=== PATIENT | male | born 1950 | race Caucasian/White ===

== ENCOUNTER → 2016-05-04 | Outpatient (CLI) | payer MEDICARE, OTHER ==
--- NOTE | 2016-05-05 07:39 | US ---
EXAMINATION TYPE: US kidneys/renal and bladder DATE OF EXAM: 05/04/2016 3:56 PM COMPARISON: NONE CLINICAL HISTORY: N28.9 Left Kidney Pain. EXAM MEASUREMENTS: Right Kidney: 10.9 x 5.2 x 5.0 cm Left Kidney: 10.8 x 5.6 x 5.7 cm Findings: Right Kidney: No hydronephrosis or masses seen Left Kidney: No hydronephrosis or masses seen Bladder: wnl Bilateral Jets seen: Yes There is no evidence for hydronephrosis at this point in time. No nephrolithiasis is seen. No matthew s are identified. The urinary bladder is anechoic. Bilateral ureteral jets are seen. IMPRESSION: 1. No acute process.
== END | disposition home or self-care (01) ==
LOC: RADUSWWP 15:25
PROVIDERS: ATTEND Family Medicine
DX: N28.9 Disorder of kidney and ureter, unspecified (principal)
CPT/HCPCS: 76770

== ENCOUNTER 2019-01-28 11:40 | Observation (INO) | payer MEDICARE ==
[2019-01-28] MEDS ORDERED: HYDROmorphone 0.5 MG/0.5 ML SYRINGE IVP STA (12:17)
[2019-01-28] MEDS ORDERED: KETOROLAC 30 MG/ML 1 ML VIAL IVP STA (12:17)
[2019-01-28] MEDS ORDERED: SODIUM CHLORIDE 0.9% 1,000 ML IV STA (12:17)
--- NOTE | 2019-01-28 12:34 | ED ---
Abdominal Pain HPI - General Source: patient, RN notes reviewed Mode of arrival: ambulatory Limitations: no limitations <Evearrdo Rivera - Last Filed: 01/28/19 15:25> <Florentino Kee - Last Filed: 01/28/19 15:57> - General Chief Complaint: Abdominal Pain Stated Complaint: abdominal pain Time Seen by Provider: 01/28/19 11:57 - History of Present Illness Initial Comments: 68-year-old male presents emergency Department chief complaint of abdominal pain. Patient states started a few days ago to progressive worsening. He does admit that the pain is in his mid abdomen. Patient states she's had some nausea and vomiting which he states it was more bilious denies any hematemesis or coffee-ground emesis. Patient reports no fever at home though current temp 100.9. Patient states he takes Wellbutrin no other medications denies any prior abdominal surgeries. Patient denies chest pain, shortness breath, cough or URI symptoms no dysuria no hematuria denies any diarrhea constipation denies melena or hematochezia. (Everardo Rivera) - Related Data Previous Rx's Medication Instructions Recorded Hydrocortisone Cream 1 applic TOPICAL BID #15 cream..g. 09/15/15 [Hydrocortisone 2.5% Cream] methylPREDNISolone [Medrol] 4 mg PO DIRECTED #1 tab.ds.pk 09/15/15 Allergies Allergy/AdvReac Type Severity Reaction Status Date / Time meperidine HCl [From Demerol] Allergy Itching Verified 01/28/19 11:52 Review of Systems ROS Other: All systems not noted in ROS Statement are negative. <Everardo Rivera - Last Filed: 01/28/19 15:25> ROS Other: All systems not noted in ROS Statement are negative. <Florentino Kee - Last Filed: 01/28/19 15:57> ROS Statement: Those systems with pertinent positive or pertinent negative responses have been documented in the HPI. Past Medical History Past Medical History: Heart Failure, CVA/TIA, Hypertension, Liver Disease, Memory Impairment Additional Past Medical History / Comment(s): Think dx was CHF but not sure. Stopped BP medication because his BP was good. hx hepatitis c, recent 0 titres. dx alzheimers beginning stage History of Any Multi-Drug Resistant Organisms: None Reported Past Surgical History: Orthopedic Surgery Additional Past Surgical History / Comment(s): ACL replacement rt knee. 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 Past Anesthesia/Blood Transfusion Reactions: No Reported Reaction Past Psychological History: No Psychological Hx Reported Smoking Status: Current every day smoker Past Alcohol Use History: None Reported Past Drug Use History: None Reported <Everardo Rivera Noemí - Last Filed: 01/28/19 15:25> General Exam Limitations: no limitations General appearance: alert, in no apparent distress Head exam: Present: atraumatic, normocephalic, normal inspection Eye exam: Present: normal appearance, PERRL, EOMI. Absent: scleral icterus, conjunctival injection, periorbital swelling ENT exam: Present: normal exam, normal oropharynx, mucous membranes moist Neck exam: Present: normal inspection, full ROM. Absent: tenderness, meningismus, lymphadenopathy Respiratory exam: Present: normal lung sounds bilaterally. Absent: respiratory distress, wheezes, rales, rhonchi, stridor Cardiovascular Exam: Present: normal rhythm, tachycardia, normal heart sounds. Absent: systolic murmur, diastolic murmur, rubs, gallop, clicks GI/Abdominal exam: Present: soft, tenderness (Moderate mid abdominal tenderness), normal bowel sounds. Absent: distended, guarding, rebound, rigid Back exam: Absent: CVA tenderness (R), CVA tenderness (L) Neurological exam: Present: alert Skin exam: Present: warm, dry, intact, normal color. Absent: rash <Everardo Rivera - Last Filed: 01/28/19 15:25> Course <Florentino Kee - Last Filed: 01/28/19 15:57> Vital Signs 01/28/19 01/28/19 11:49 15:36 Temperature 100.9 F H 97.7 F Pulse Rate 102 H 84 Respiratory 18 18 Rate Blood Pressure 137/86 124/80 O2 Sat by Pulse 97 96 Oximetry - Reevaluation(s) Reevaluation #1: 01/28/19 15:56 PA supervision: I proceeded [id number] evaluation the patient patient does present with pain and workup does consist of imaging which does show evidence of dilated gallbladder cholecystitis. Case is discussed with the patient family as well as Dr. Puente. It will be admitted I do agree with the assessment and plan. (Florentino Kee) Medical Decision Making - Lab Data Result diagrams: 01/28/19 12:34 01/28/19 12:34 <Everardo Rivera - Last Filed: 01/28/19 15:25> - Lab Data Result diagrams: 01/28/19 12:34 01/28/19 12:34 <Florentino Kee - Last Filed: 01/28/19 15:57> - Medical Decision Making Labs, CT were drawn patient has leukocytosis CT shows evidence of acute cholecystitis. Patient was started on Zosyn, given IV fluid hydration case discussed with Dr. Puente who admit the patient. (Everardo Rivera) - Lab Data Lab Results 01/28/19 01/28/19 01/28/19 Range/Units 12:34 12:34 12:34 WBC 23.3 H (3.8-10.6) k/uL RBC 4.92 (4.30-5.90) m/uL Hgb 16.2 (13.0-17.5) gm/dL Hct 47.2 (39.0-53.0) % MCV 95.9 (80.0-100.0) fL MCH 33.0 (25.0-35.0) pg MCHC 34.4 (31.0-37.0) g/dL RDW 12.9 (11.5-15.5) % Plt Count 178 (150-450) k/uL Neutrophils % 91 % Lymphocytes % 2 % Monocytes % 5 % Eosinophils % 0 % Basophils % 1 % Neutrophils # 21.1 H (1.3-7.7) k/uL Lymphocytes # 0.6 L (1.0-4.8) k/uL Monocytes # 1.1 H (0-1.0) k/uL Eosinophils # 0.1 (0-0.7) k/uL Basophils # 0.1 (0-0.2) k/uL PT (9.0-12.0) sec INR (<1.2) APTT (22.0-30.0) sec Sodium 139 (137-145) mmol/L Potassium 4.0 (3.5-5.1) mmol/L Chloride 104 (98-107) mmol/L Carbon Dioxide 24 (22-30) mmol/L Anion Gap 11 mmol/L BUN 25 H (9-20) mg/dL Creatinine 0.98 (0.66-1.25) mg/dL Est GFR (CKD-EPI)AfAm >90 (>60 ml/min/1.73 sqM) Est GFR (CKD-EPI)NonAf 80 (>60 ml/min/1.73 sqM) Glucose 123 H (74-99) mg/dL Plasma Lactic Acid Haseeb 1.6 (0.7-2.0) mmol/L Calcium 9.0 (8.4-10.2) mg/dL Total Bilirubin 1.4 H (0.2-1.3) mg/dL AST 25 (17-59) U/L ALT 22 (21-72) U/L Alkaline Phosphatase 72 (38-126) U/L Total Protein 7.1 (6.3-8.2) g/dL Albumin 4.0 (3.5-5.0) g/dL Amylase 57 (30-110) U/L Lipase <10 L (23-300) U/L Urine Color Urine Appearance (Clear) Urine pH (5.0-8.0) Urine Protein (Negative) Urine Glucose (UA) (Negative) Urine Ketones (Negative) Urine Blood (Negative) Urine Nitrite (Negative) Urine Bilirubin (Negative) Urine Urobilinogen (<2.0) mg/dL Ur Leukocyte Esterase (Negative) Urine WBC (0-5) /hpf Ur Squamous Epith Cells (0-4) /hpf Urine Mucus (None) /hpf 01/28/19 01/28/19 Range/Units 12:34 15:30 WBC (3.8-10.6) k/uL RBC (4.30-5.90) m/uL Hgb (13.0-17.5) gm/dL Hct (39.0-53.0) % MCV (80.0-100.0) fL MCH (25.0-35.0) pg MCHC (31.0-37.0) g/dL RDW (11.5-15.5) % Plt Count (150-450) k/uL Neutrophils % % Lymphocytes % % Monocytes % % Eosinophils % % Basophils % % Neutrophils # (1.3-7.7) k/uL Lymphocytes # (1.0-4.8) k/uL Monocytes # (0-1.0) k/uL Eosinophils # (0-0.7) k/uL Basophils # (0-0.2) k/uL PT 9.3 (9.0-12.0) sec INR 0.8 (<1.2) APTT 26.2 (22.0-30.0) sec Sodium (137-145) mmol/L Potassium (3.5-5.1) mmol/L Chloride (98-107) mmol/L Carbon Dioxide (22-30) mmol/L Anion Gap mmol/L BUN (9-20) mg/dL Creatinine (0.66-1.25) mg/dL Est GFR (CKD-EPI)AfAm (>60 ml/min/1.73 sqM) Est GFR (CKD-EPI)NonAf (>60 ml/min/1.73 sqM) Glucose (74-99) mg/dL Plasma Lactic Acid Haseeb (0.7-2.0) mmol/L Calcium (8.4-10.2) mg/dL Total Bilirubin (0.2-1.3) mg/dL AST (17-59) U/L ALT (21-72) U/L Alkaline Phosphatase (38-126) U/L Total Protein (6.3-8.2) g/dL Albumin (3.5-5.0) g/dL Amylase (30-110) U/L Lipase (23-300) U/L Urine Color Yellow Urine Appearance Clear (Clear) Urine pH 6.5 (5.0-8.0) Urine Protein 1+ H (Negative) Urine Glucose (UA) Negative (Negative) Urine Ketones 1+ H (Negative) Urine Blood Negative (Negative) Urine Nitrite Negative (Negative) Urine Bilirubin Negative (Negative) Urine Urobilinogen 6.0 (<2.0) mg/dL Ur Leukocyte Esterase Negative (Negative) Urine WBC 2 (0-5) /hpf Ur Squamous Epith Cells <1 (0-4) /hpf Urine Mucus Occasional H (None) /hpf Disposition <Everardo Rivera - Last Filed: 01/28/19 15:25> <Florentino Kee - Last Filed: 01/28/19 15:57> Clinical Impression: Acute cholecystitis Disposition: ADMITTED IP TO THIS [facility] Condition: Fair Referrals: None,Stated [Primary Care Provider] - 1-2 days
[2019-01-28 13:00] LABS: ALT 22 U/L (21-72); AST 25 U/L (17-59); African American GFR (CKD) >90 (>60 ml/min/1.73 sqM); Alkaline Phosphatase 72 U/L (38-126); Amylase 57 U/L (30-110); Anion Gap 11 mmol/L; Blood Urea Nitrogen 25 mg/dL (9-20); Carbon Dioxide 24 mmol/L (22-30); Chloride 104 mmol/L (98-107); Glucose 123 mg/dL (74-99); Non-African American GFR(CKD) 80 (>60 ml/min/1.73 sqM); Sodium 139 mmol/L (137-145); Total Bilirubin 1.4 mg/dL (0.2-1.3); Total Protein 7.1 g/dL (6.3-8.2)
[2019-01-28 13:01] LABS: INR 0.8 (<1.2); Partial Thromboplastin Time 26.2 sec (22.0-30.0); Prothrombin Time 9.3 sec (9.0-12.0)
[2019-01-28 13:18] LABS: Basophils # (A) 0.1 k/uL (0-0.2); Basophils % (A) 1 %; Eosinophils # (A) 0.1 k/uL (0-0.7); Eosinophils % (A) 0 %; HCT 47.2 % (39.0-53.0); HGB 16.2 gm/dL (13.0-17.5); Lymphocytes # (A) 0.6 k/uL (1.0-4.8); Lymphocytes % (A) 2 %; MCHC 34.4 g/dL (31.0-37.0); MCV 95.9 fL (80.0-100.0); Monocytes # (A) 1.1 k/uL (0-1.0); Monocytes % (A) 5 %; Neutrophils # (A) 21.1 k/uL (1.3-7.7); Neutrophils % (A) 91 %; Platelet Count 178 k/uL (150-450); RBC 4.92 m/uL (4.30-5.90); RDW 12.9 % (11.5-15.5); WBC 23.3 k/uL (3.8-10.6)
--- NOTE | 2019-01-28 14:19 | CT ---
EXAMINATION TYPE: CT abdomen pelvis w con DATE OF EXAM: 01/28/2019 COMPARISON: None HISTORY: Abdominal pain, fever CT DLP: 944.7 mGycm Automated exposure control for dose reduction was used. TECHNIQUE: Helical acquisition of images was performed from the lung bases through the pelvis. CONTRAST: Performed without Oral Contrast and with IV Contrast, patient injected with 100 mL of Isovue 300. FINDINGS: There is mild subsegmental atelectasis at the lung bases. Heart size is normal. There is no pleural e ffusion. Liver shows no focal defect. Gallbladder is mildly dilated and measures 4.5 cm with mild wal l thickening. The bile ducts are not dilated. Spleen is intact. Stomach appears normal. There is no e vidence of pancreatic mass. There is mild fat stranding around the gallbladder. There is no adrenal mass. Kidneys show satisfactory contrast opacification. There is no hydronephrosi s. Bladder distends smoothly. There is no inguinal hernia. Ureters are not dilated. There is small am ount of free fluid in the pelvis. There is no evidence of a bowel obstruction. There is no sign of free air. Appendix appears normal. A bdominal aorta is atheromatous. There are spondylotic changes in the lumbar spine. There is no compre ssion fracture. Bony pelvis is intact. There is mild wall thickening of the hepatic flexure of the co omid adjacent to gallbladder. IMPRESSION: DILATED GALLBLADDER WITH PERICHOLECYSTIC FLUID AND FAT STRANDING CONSISTENT WITH ACUTE CHOLECYSTITIS. MINIMAL FREE FLUID IN THE pelvis. Mild inflammatory changes of the hepatic flexure of the colon prob ably secondary to gallbladder inflammatory process.
[2019-01-28] MEDS ORDERED: PIPERACILLIN-TAZOBACTAM 3.375 GM in SODIUM CHLORIDE 0.9% 100 ML IVPB STA (15:02)
[2019-01-28] MEDS ORDERED: ONDANSETRON 4 MG/2 ML VIAL IVP PRN (15:26)
[2019-01-28] MEDS ORDERED: HYDROmorphone 0.5 MG/0.5 ML SYRINGE IVP PRN (15:26)
[2019-01-28] MEDS ORDERED: HYDROmorphone 1 MG/ML 1 ML SYRINGE IVP PRN (15:26)
[2019-01-28] MEDS ORDERED: NALOXONE 0.4 MG/ML 1 ML VIAL IV PRN (15:26)
[2019-01-28] MEDS ORDERED: SODIUM CHLORIDE 0.9% 1,000 ML IV SCH (15:30)
[2019-01-28 15:46] LABS: Appearance,Urine Clear (Clear); Bilirubin,Urine Negative (Negative); Blood,Urine Negative (Negative); Color,Urine Yellow; Glucose,Urine (UA) Negative (Negative); Ketones,Urine 1+ (Negative); Leukocyte Esterase,Urine Negative (Negative); Mucus,Urine Occasional /hpf; Nitrite,Urine Negative (Negative); PH, Urine 6.5 (5.0-8.0); Protein,Urine 1+ (Negative); Squamous Epithelial Cell,Urine <1 /hpf (0-4)
[2019-01-28 16:12] LABS: Specific Gravity,Urine >1.050 (1.001-1.035)
[2019-01-28 17:02] VITALS: BP 128/84; PULSE 87; RESP 20; TEMP 99.1
[2019-01-29] MEDS ORDERED: PIPERACILLIN-TAZOBACTAM 3.375 GM in SODIUM CHLORIDE 0.9% 100 ML IVPB SCH ×2
== END 2019-01-28 17:30 | disposition left against medical advice (07) ==
LOC: EC 11:40 → 4MS4W 15:55
PROVIDERS: ADMIT Surgery; ATTEND Surgery
DX: K81.0 Acute cholecystitis (principal); K82.8 Other specified diseases of gallbladder; Z53.29 Procedure and treatment not carried out because of patient's decision for other reasons; I11.0 Hypertensive heart disease with heart failure; I50.9 Heart failure, unspecified; B19.20 Unspecified viral hepatitis C without hepatic coma; G30.9 Alzheimer's disease, unspecified; F02.80 Dementia in other diseases classified elsewhere, unspecified severity, without behavioral disturbance, psychotic disturbance, mood disturbance, and anxiety; F17.200 Nicotine dependence, unspecified, uncomplicated; Z88.5 Allergy status to narcotic agent; Z86.73 Personal history of transient ischemic attack (TIA), and cerebral infarction without residual deficits
CPT/HCPCS: 96361; 96374; 96375; 99285; 36415; 80053; 82150; 83605; 83690; 85025; 85610; 85730; 81001; 87040; 74177; G0378; J2543; J1885; J1170; Q9967

== ENCOUNTER 2019-01-28 17:41 | Inpatient (IN) | payer MEDICARE ==
--- NOTE | 2019-01-28 18:21 | ED ---
Abdominal Pain HPI <Chilango Iraheta - Last Filed: 01/28/19 18:54> - General Source: patient Mode of arrival: ambulatory Limitations: no limitations <Krystina Iqbal - Last Filed: 01/28/19 19:09> - General Chief Complaint: Abdominal Pain Stated Complaint: Left ama from 4th floor has to go though ER now Time Seen by Provider: 01/28/19 17:56 - History of Present Illness Initial Comments: 68-year-old male presents most her for readmission for acute cholecystitis. Patient states he left AMA from the there are a just a few hours prior to presentation to emergency department. Patient states he left to get his phone and his phone numbers to and needed this in order to let his family know where he was at. Patient states he continues have right upper quadrant pain denies any worsening symptoms. Patient states he does not warm or have chills but was told he had a fever when he arrived. Patient states he was told to come to the emergency department for re-admission. Patient states he wants water. Patient has no other complaints. Patient denies any recent shortness of breath, chest pain, back pain, numbness or tingling, dysuria or hematuria, constipation or diarrhea, headaches or visual changes, or any other complaints. (Krystina Iqbal) - Related Data Home Medications Medication Instructions Recorded Confirmed Wellbutrin(Unknown Dose) 1 tab PO DAILY 01/28/19 01/28/19 Allergies Allergy/AdvReac Type Severity Reaction Status Date / Time meperidine HCl [From Demerol] Allergy Itching Verified 01/28/19 18:10 Review of Systems ROS Other: All systems not noted in ROS Statement are negative. <Chilango Iraheta - Last Filed: 01/28/19 18:54> ROS Other: All systems not noted in ROS Statement are negative. <Krystina Iqbal - Last Filed: 01/28/19 19:09> ROS Statement: Those systems with pertinent positive or pertinent negative responses have been documented in the HPI. Past Medical History Past Medical History: Heart Failure, CVA/TIA, Hypertension, Liver Disease, Memory Impairment Additional Past Medical History / Comment(s): Think dx was CHF but not sure. Stopped BP medication because his BP was good. hx hepatitis c, recent 0 titres. dx alzheimers beginning stage History of Any Multi-Drug Resistant Organisms: None Reported Past Surgical History: Orthopedic Surgery Additional Past Surgical History / Comment(s): ACL replacement rt knee. 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 Past Anesthesia/Blood Transfusion Reactions: No Reported Reaction Past Psychological History: No Psychological Hx Reported Smoking Status: Current every day smoker Past Alcohol Use History: None Reported Past Drug Use History: None Reported - Past Family History Brother(s) Family Medical History: Diabetes Mellitus <Krystina Iqbal - Last Filed: 01/28/19 19:09> General Exam Limitations: no limitations <Krystina Iqbal - Last Filed: 01/28/19 19:09> - General Exam Comments Initial Comments: General: The patient is awake and alert, in no distress Eye: Pupils are equal, round and reactive to light, extra-ocular movements are intact. No nystagmus. There is normal conjunctiva bilaterally. No signs of icterus. Cardiovascular: There is a regular rate and rhythm. No murmur, rub or gallop is appreciated. Respiratory: Lungs are clear to auscultation, respirations are non-labored, breath sounds are equal. No wheezes, stridor, rales, or rhonchi. Gastrointestinal: Soft, non-distended, tender to the right upper quadrant positive Chung sign the remainder of the abdomen is without pain as well as without masses or organomegaly noted. There is no rebound or guarding present. No CVA tenderness. Bowel sounds are unremarkable. Musculoskeletal: Normal ROM, no tenderness. Strength 5/5. Sensation intact. Pulses equal bilaterally 2+. Neurological: A&O x 3. CN II-XII intact grossly, There are no obvious motor or sensory deficits. Coordination appears grossly intact. Speech is normal. Skin: Skin is warm and dry and no rashes or lesions are noted. Psychiatric: Cooperative, appropriate mood & affect, normal judgment. (Krystina Iqbal) Course Vital Signs 01/28/19 18:08 Temperature 101.0 F H Pulse Rate 92 Respiratory 18 Rate Blood Pressure 121/78 O2 Sat by Pulse 96 Oximetry Medical Decision Making <Chilango Iraheta - Last Filed: 01/28/19 18:54> <Krystina Iqbal - Last Filed: 01/28/19 19:09> - Medical Decision Making Medical decision making; this 68-year-old male who was admitted earlier today. The diagnosis of acute cholecystitis. The patient apparently signed out AGAINST MEDICAL ADVICE, soon thereafter returned to the emergency room. Earlier today the patient had iv fluids, IV Zosyn, labs showed an elevated white count 23,000. Temperature at that time was 100. Patient's past history includes hep C. Upon arrival to the emergency room several hours after signing out AMA temperature 101 pulse 92 respiratory rate 18 pulse ox 96% room air blood pressure 121/78. The case was discussed with Dr. campbell at the request of Dr. Puente. The patient's exam shows tenderness to the right upper quadrant. Patient states pains ongoing for 2 days with bilious vomiting 2 days ago. The case discussed Dr. campbell, he wants the patient admitted, kept nothing by mouth, continue hydration, continue Zosyn, do a drug screen if not already performed, repeat labs in the morning. Nurses to call him if there is a change in his condition. Dr. Iraheta (Chilango Iraheta) 68-year-old male presented [facility] department who left earlier from for him [facility] AGAINST MEDICAL ADVICE he was diagnosed with acute cholecystitis given 1 dose of Zosyn at ~1700. Patient returns febrile, no new symptoms. I contacted Dr. Puente who refused readmission. Dr. Campbell contacted by Dr. Iraheta, he accepted admission. Dr. Campbell wanted patient NPO, with fluids, q8h zosyn. Patient given epinephrine have given she is febrile and surgical status. Patient admitted and transferred to floor in stable condition. (Krystina Iqbal) Disposition <Chilango Iraheta - Last Filed: 01/28/19 18:54> Is patient prescribed a controlled substance at d/c from ED?: No Time of Disposition: 19:09 Decision to Admit Reason: Admit from EC Decision Date: 01/28/19 Decision Time: 19:09 <Krystina Iqbal - Last Filed: 01/28/19 19:09> Clinical Impression: Acute cholecystitis, Leukocytosis, Fever Disposition: ADMITTED IP TO THIS [facility] Condition: Stable Referrals: None,Stated [Primary Care Provider] - 1-2 days
[2019-01-28] MEDS ORDERED: SODIUM CHLORIDE 0.9% 1,000 ML IV ONE (18:32)
[2019-01-28] MEDS ORDERED: MORPHINE SULFATE 2 MG/ML SYRINGE IVP STA (18:32)
[2019-01-28] MEDS ORDERED: ONDANSETRON 4 MG/2 ML VIAL IVP PRN (18:54)
[2019-01-28] MEDS ORDERED: NALOXONE 0.4 MG/ML 1 ML VIAL IV PRN (18:54)
[2019-01-28] MEDS ORDERED: ACETAMINOPHEN IV (For NPO) 1,000 MG in EMPTY BAG 1 BAG IVPB ONE (18:57)
[2019-01-28] MEDS: SODIUM CHLORIDE 0.9% 1,000 ML IV SCH (19:15)
[2019-01-28 19:27] LABS: Basophils # (A) 0.2 k/uL (0-0.2); Basophils % (A) 1 %; Eosinophils # (A) 0.1 k/uL (0-0.7); Eosinophils % (A) 1 %; HCT 36.8 % (39.0-53.0); Lymphocytes # (A) 0.7 k/uL (1.0-4.8); Lymphocytes % (A) 3 %; MCH 33.9 pg (25.0-35.0); MCHC 35.7 g/dL (31.0-37.0); MCV 94.9 fL (80.0-100.0); Mean Platelet Volume 6.5; Monocytes % (A) 5 %; Neutrophils # (A) 19.2 k/uL (1.3-7.7); Neutrophils % (A) 89 %; Platelet Count 222 k/uL (150-450); RBC 3.87 m/uL (4.30-5.90); RDW 12.8 % (11.5-15.5); WBC 21.5 k/uL (3.8-10.6)
[2019-01-28 19:34] LABS: HGB 13.1 gm/dL (13.0-17.5)
[2019-01-28 19:43] LABS: Albumin 3.7 g/dL (3.5-5.0); Calcium 8.4 mg/dL (8.4-10.2); Total Bilirubin 1.7 mg/dL (0.2-1.3); Total Protein 6.7 g/dL (6.3-8.2)
[2019-01-28 19:48] LABS: Potassium 4.4 mmol/L (3.5-5.1)
[2019-01-28 20:18] LABS: Amphetamine Screen,Urine Not Detected (NotDetected); Barbiturate Screen,Urine Not Detected (NotDetected); Benzodiazepines Screen,Urine Not Detected (NotDetected); Cocaine Screen,Urine Not Detected (NotDetected); Methadone Screen, Urine Not Detected (NotDetected); Opiate Screen,Urine Detected (NotDetected); Oxycodone Screen, Urine Not Detected (NotDetected); Phencyclidine Screen,Urine Not Detected (NotDetected); Tricyclic Antidepressant,Urine Not Detected (NotDetected); Urn Cannabinoid Scrn Not Detected (NotDetected)
[2019-01-28] MEDS: PIPERACILLIN-TAZOBACTAM 3.375 GM in SODIUM CHLORIDE 0.9% 100 ML IVPB SCH (23:45)
[2019-01-29] MEDS ORDERED: LACTATED RINGERS 1,000 ML IV ONE ×2 (06:56→08:33)
[2019-01-29] MEDS ORDERED: HEPARIN SODIUM,PORCINE 5,000 UNIT/ML 1 ML VIAL SQ ONE (07:09)
--- NOTE | 2019-01-29 07:12 | P.GSHP ---
History of Present Illness H&P Date: 01/29/19 Chief Complaint: Right upper quadrant pain This is a 68-year-old male who presents emergency room includes right quadrant pain. His recent CAT scan shows evidence of pericholecystic fluid and cholecystitis. Patient is known to have gallstones. The patient was admitted for acute cholecystitis. Past Medical History Past Medical History: Heart Failure, CVA/TIA, Hypertension, Liver Disease, Memory Impairment Additional Past Medical History / Comment(s): Think dx was CHF but not sure. Stopped BP medication because his BP was good. hx hepatitis c, recent 0 titres. dx alzheimers beginning stage History of Any Multi-Drug Resistant Organisms: None Reported Past Surgical History: Orthopedic Surgery Additional Past Surgical History / Comment(s): ACL replacement rt knee. 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 Past Anesthesia/Blood Transfusion Reactions: No Reported Reaction Past Psychological History: No Psychological Hx Reported Smoking Status: Current some day smoker Past Alcohol Use History: None Reported Past Drug Use History: None Reported - Past Family History Brother(s) Family Medical History: Diabetes Mellitus Medications and Allergies Home Medications Medication Instructions Recorded Confirmed Type Wellbutrin(Unknown Dose) 1 tab PO DAILY 01/28/19 01/28/19 History Allergies Allergy/AdvReac Type Severity Reaction Status Date / Time meperidine HCl [From Demerol] Allergy Itching Verified 01/28/19 18:10 Surgical - Exam Vital Signs Temp Pulse Resp BP Pulse Ox 101.0 F H 92 18 121/78 96 01/28/19 18:08 01/28/19 18:08 01/28/19 18:08 01/28/19 18:08 01/28/19 18:08 - General well developed, no distress - Eyes PERRL - ENT normal pinna, normal nares - Neck no masses - Respiratory normal expansion - Cardiovascular Rhythm: regular - Abdomen Mild right quadrant pain Abdomen: soft Results - Labs 01/28/19 19:12 01/28/19 19:12 Abnormal Lab Results - Last 24 Hours (Table) 01/28/19 01/28/19 01/28/19 Range/Units 19:12 19:12 19:44 WBC 21.5 H (3.8-10.6) k/uL RBC 3.87 L (4.30-5.90) m/uL Hct 36.8 L (39.0-53.0) % Neutrophils # 19.2 H (1.3-7.7) k/uL Lymphocytes # 0.7 L (1.0-4.8) k/uL BUN 26 H (9-20) mg/dL Glucose 106 H (74-99) mg/dL Total Bilirubin 1.7 H (0.2-1.3) mg/dL Urine Opiates Screen Detected H (NotDetected) Diabetes panel 01/28/19 Range/Units 19:12 Sodium 137 (137-145) mmol/L Potassium 4.4 (3.5-5.1) mmol/L Chloride 106 (98-107) mmol/L Carbon Dioxide 23 (22-30) mmol/L BUN 26 H (9-20) mg/dL Creatinine 1.12 (0.66-1.25) mg/dL Glucose 106 H (74-99) mg/dL Calcium 8.4 (8.4-10.2) mg/dL AST 50 (17-59) U/L ALT 42 (21-72) U/L Alkaline Phosphatase 86 (38-126) U/L Total Protein 6.7 (6.3-8.2) g/dL Albumin 3.7 (3.5-5.0) g/dL Calcium panel 01/28/19 Range/Units 19:12 Calcium 8.4 (8.4-10.2) mg/dL Albumin 3.7 (3.5-5.0) g/dL Pituitary panel 01/28/19 Range/Units 19:12 Sodium 137 (137-145) mmol/L Potassium 4.4 (3.5-5.1) mmol/L Chloride 106 (98-107) mmol/L Carbon Dioxide 23 (22-30) mmol/L BUN 26 H (9-20) mg/dL Creatinine 1.12 (0.66-1.25) mg/dL Glucose 106 H (74-99) mg/dL Calcium 8.4 (8.4-10.2) mg/dL Adrenal panel 01/28/19 Range/Units 19:12 Sodium 137 (137-145) mmol/L Potassium 4.4 (3.5-5.1) mmol/L Chloride 106 (98-107) mmol/L Carbon Dioxide 23 (22-30) mmol/L BUN 26 H (9-20) mg/dL Creatinine 1.12 (0.66-1.25) mg/dL Glucose 106 H (74-99) mg/dL Calcium 8.4 (8.4-10.2) mg/dL Total Bilirubin 1.7 H (0.2-1.3) mg/dL AST 50 (17-59) U/L ALT 42 (21-72) U/L Alkaline Phosphatase 86 (38-126) U/L Total Protein 6.7 (6.3-8.2) g/dL Albumin 3.7 (3.5-5.0) g/dL - Imaging CT scan - abdomen: report reviewed (Pericholecystic fluid fluid, with fat stranding around gallbladder) US - abdomen: report reviewed (Cholelithiasis) Assessment and Plan Assessment: Acute cholecystitis. Patient will undergo laparoscopic cystectomy. The risks of possible conversion to open procedure was discussed the patient.
[2019-01-29] MEDS ORDERED: HYDROmorphone (PF) 1 MG/ML ONE (07:14)
[2019-01-29] MEDS ORDERED: fentaNYL (PF) 50 MCG/ML 2 ML AMP ONE (07:14)
[2019-01-29] MEDS ORDERED: SUCCINYLCHOLINE CHLORIDE 100 MG/5 ML SYR IV ONE (07:14)
[2019-01-29] MEDS ORDERED: LIDOCAINE 1% INJ 10MG/ML (20 ML MDV) ONE (07:14)
[2019-01-29] MEDS ORDERED: ROCURONIUM BROMIDE 10 MG/ML 10 ML VIAL IV ONE (07:14)
[2019-01-29] MEDS ORDERED: PROPOFOL 10 MG/ML 20 ML VIAL IV ONE (07:14)
[2019-01-29] MEDS ORDERED: MIDAZOLAM 2 MG/2 ML VIAL ONE (07:14)
[2019-01-29] MEDS: SODIUM CHLORIDE 0.9% 1,000 ML IV SCH ×3 (07:25→22:37)
[2019-01-29] MEDS ORDERED: BUPIVACAINE (PF) 0.25% 30 ML VIAL SQ ONE (07:34)
--- NOTE | 2019-01-29 08:05 | P.OP ---
Date of Procedure: 01/29/19 Preoperative Diagnosis: Acute cholecystitis Postoperative Diagnosis: Acute cholecystitis with gangrene of gallbladder Cholelithiasis Procedure(s) Performed: Laparoscopic cholecystectomy Anesthesia: LARA Surgeon: José Miguel Luciano Estimated Blood Loss (ml): 5 Pathology: other (Gallbladder) Condition: stable Disposition: PACU Description of Procedure: The patient was placed on the operating table. The patient received a general endotracheal tube anesthesia. The patients abdomen was prepped and draped in the usual sterile fashion. Through an infraumbilical stab incision, the fascia of the anterior abdominal wall was grasped with a pair of Kochers and then the Veress needle was placed in the peritoneal cavity. Position of the Veress needle was confirmed with positive drop test. The abdomen was then insufflated. After adequate insufflation, the 10 mm trocar was placed in the peritoneal cavity. Following this the laparoscope was placed in the peritoneal cavity. The patient was placed in the head-up, right side up position and then a 5 mm trocar was placed in the right lateral and right subcostal position under direct visualization. A 8 mm trocar was placed in the epigastric position. The gallbladder appeared to have necrosis. The gallbladder was aspirated with suction. The gallbladder was grasped in the fundus and infundibulum. Traction on the gallbladder was placed in the lateral and the cephalad positions. The triangle of Calot was visualized.. The cystic duct was bluntly dissected until the union of the cystic duct and common bile duct was seen. A critical view of safety was achieved. The cystic duct was then ligated with 2-0 Ethibond and a timeout device. The cystic duct was then divided and sealed with the Harmonic scissors. A PDS Endoloop was then placed throughout the cystic duct stump. The cystic artery divided and sealed with the Harmonic scissors. The gallbladder was then removed from the liver bed using Harmonic scissors. The gallbladder was then extracted through the epigastric port site. Operative field was checked for any bleeding spots and Harmonic scissors was used to coagulate the liver bed. The abdomen was irrigated. The trocars were removed. The skin was closed using interrupted 3-0 Vicryl suture. Dermabond dressing were applied. The patient tolerated the procedure well.
[2019-01-29] MEDS ORDERED: HYDROmorphone 1 MG/ML 1 ML SYRINGE IM PRN (08:09)
[2019-01-29] MEDS: PIPERACILLIN-TAZOBACTAM 3.375 GM in SODIUM CHLORIDE 0.9% 100 ML IVPB SCH ×3 (10:57→23:34)
--- NOTE | 2019-01-29 15:24 | XR ---
EXAMINATION TYPE: XR chest 1V portable DATE OF EXAM: 01/29/2019 COMPARISON: 07/05/2014 HISTORY: Heart failure TECHNIQUE: Single frontal view of the chest is obtained. FINDINGS: Heart and mediastinum are normal. Lungs are clear. Diaphragm is normal. Bony thorax is int act. There is no pleural effusion. IMPRESSION: No active cardiopulmonary disease. No change.
[2019-01-29] MEDS: MORPHINE SULFATE 4 MG/ML SYRINGE IV PRN ×2 (15:49→21:12)
--- NOTE | 2019-01-29 22:06 | CONS ---
CONSULTATION REASON FOR CONSULTATION: Advice regarding CHF and CVA, TIA requested by Dr. Luciano. HISTORY OF PRESENT ILLNESS: 68-year-old gentleman with a past history of CVA, CHF, history of memory impairment, not being followed by any primary physician, apparently has returned to with locality for some time. The patient is admitted with features of acute cholecystitis with gangrene of the gallbladder and cholelithiasis. The patient underwent laparoscopic cholecystectomy by Dr. Luciano. There is no history of chest pain. No palpitation, headache, loss of consciousness, nausea, vomiting, diarrhea, fever, rigors, chills at this time. PAST MEDICAL HISTORY: History of CHF, CVA, TIA, hypertension, history of liver disease, memory impairment. MEDICATIONS: Prior to admission: Wellbutrin 1 p.o. daily. ALLERGIES: DEMEROL. FAMILY HISTORY: History of diabetes in the family. SOCIAL HISTORY: History of smoking. No history of alcohol intake. Previous alcohol intake. REVIEW OF SYSTEMS: ENT: No diminished hearing, diminished vision. Cardiovascular: No angina or palpitations. RESPIRATORY: As mentioned earlier. GI mentioned earlier. no dysuria or hematuria. Nervous system: No numbness or weakness. ALLERGY/IMMUNOLOGY: No asthma or hayfever. MUSCULOSKELETAL as mentioned earlier. HEMATOLOGY/ONCOLOGY: No history of anemia. ENDOCRINE: No history of diabetes or hypothyroidism. CONSTITUTIONAL: As mentioned earlier. DERMATOLOGY: Negative. RHEUMATOLOGY: Negative. PSYCHIATRIC: As mentioned earlier. PHYSICAL EXAMINATION: Alert and oriented times three. Pulse 65, blood pressure 150/84. Respirations 18. Temperature 98.1, pulse ox 98% on room air. Conjunctivae normal. Oral mucosa moist. Neck is no jugular venous distention. No carotid bruit. No lymph node enlargement. Cardiovascular system: S1, S2 muffled. No S3, no S4. Respirations: Breath sounds diminished in the bases. A few scattered rhonchi. No crackles. ABDOMEN: Soft. Status post surgery. LEGS: No edema. No swelling. NERVOUS SYSTEM: Higher functions as mentioned earlier. Moves all four limbs. No focal motor or sensory deficits. LYMPHATICS: No lymph nodes palpable in the neck, axilla or groin. SKIN: No ulcers. No rashes. No bleeding. JOINTS: No active deforming arthropathy. LAB STUDIES: WBC 21.2, hemoglobin 13.1. BUN is 26, creatinine is 1.12. ASSESSMENT: 1. Acute cholecystitis with gangrene of the gallbladder with cholelithiasis. Status post laparoscopic cholecystectomy. 2. Increased WBC. 3. Increased total bilirubin. 4. History of cerebrovascular accident, transient ischemic attack. 5. History of congestive heart failure. 6. Hypertension. 7. History of liver disease. 8. Memory impairment. 9. History of hypertension. 10.History of hepatitis C. 11.History of dementia. 12.History of degenerative joint disease. 13.History of noncompliance. 14.FULL CODE. RECOMMENDATIONS AND DISCUSSION: In this 68-year-old gentleman who presented with multiple medical issues, at this time, we will monitor the patient closely, continue the current medications, management and symptomatic treatment. medications not available at this time, I recommend continue to monitor the fluid electrolytes balance and broad-spectrum IV antibiotics and we will closely follow. The chest x-ray may also be recommended to rule out the possibility of active CHF at this time. We will follow the patient closely with you. The patient may be asked to follow up with primary physician closely after discharge. Thank you Dr. Luciano for letting us participate in the care of this patient. MMODL / IJN: [id number] / RONALD
[2019-01-30] MEDS: MORPHINE SULFATE 4 MG/ML SYRINGE IV PRN ×2 (02:51→06:40)
[2019-01-30 07:35] LABS: Basophils # (A) 0.2 k/uL (0-0.2); Basophils % (A) 3 %; Eosinophils # (A) 0.2 k/uL (0-0.7); Eosinophils % (A) 3 %; HCT 34.8 % (39.0-53.0); HGB 11.7 gm/dL (13.0-17.5); Lymphocytes # (A) 0.8 k/uL (1.0-4.8); Lymphocytes % (A) 11 %; MCH 32.7 pg (25.0-35.0); MCHC 33.7 g/dL (31.0-37.0); MCV 96.9 fL (80.0-100.0); Monocytes # (A) 0.5 k/uL (0-1.0); Monocytes % (A) 7 %; Neutrophils # (A) 5.6 k/uL (1.3-7.7); Neutrophils % (A) 75 %; Platelet Count 208 k/uL (150-450); RBC 3.59 m/uL (4.30-5.90); RDW 12.8 % (11.5-15.5); WBC 7.4 k/uL (3.8-10.6)
[2019-01-30 07:46] LABS: African American GFR (CKD) >90 (>60 ml/min/1.73 sqM); Anion Gap 6 mmol/L; Blood Urea Nitrogen 14 mg/dL (9-20); Calcium 7.8 mg/dL (8.4-10.2); Carbon Dioxide 28 mmol/L (22-30); Chloride 108 mmol/L (98-107); Glucose 104 mg/dL (74-99); Potassium 3.7 mmol/L (3.5-5.1); Sodium 142 mmol/L (137-145)
[2019-01-30] MEDS: PIPERACILLIN-TAZOBACTAM 3.375 GM in SODIUM CHLORIDE 0.9% 100 ML IVPB SCH ×3 (07:54→23:45)
[2019-01-30] MEDS ORDERED: HYDROcodone/APAP 5-325MG 1 EACH TAB PO PRN (09:13)
--- NOTE | 2019-01-30 12:44 | P.PN ---
Subjective Progress Note Date: 01/30/19 CHIEF COMPLAINT: Abdominal pain HISTORY OF PRESENT ILLNESS: Patient is status post laparoscopic cholecystectomy. Postop day #1. Patient examined this morning at the bedside. Patient reports his pain is tolerable. He is receiving IV narcotics for pain control. He is tolerating diet. Denies nausea or vomiting. Voiding without difficulty. Passing flatus. Vital signs stable. He is afebrile. WBC 7.1. Hemoglobin 11.7. PHYSICAL EXAM: VITAL SIGNS: Reviewed. GENERAL: Well-developed in no acute distress. HEENT: No sclera icterus. Extraocular movements grossly intact. Moist buccal mucosa. Head is atraumatic, normocephalic. ABDOMEN: Soft. Nondistended. Appropriate surgical tenderness. Laparoscopic incision sites clean dry and intact. NEUROLOGIC: Alert and oriented. Cranial nerves II through XII grossly intact. ASSESSMENT: 1. Acute cholecystitis with gangrene of gallbladder and cholelithiasis, status post laparoscopically cholecystectomy PLAN: 1. Continue current diet 2. Add [place] to regimen. Avoid IV narcotics if possible. 3. Increase activity 4. DC home tomorrow if pain controlled on oral medications Nurse practitioner note has been reviewed by physician. Signing provider agrees with the documented findings, assessment, and plan of care. Objective - Vital Signs Vital signs: Vital Signs Temp 99.5 F 01/30/19 05:00 Pulse 67 01/30/19 05:00 Resp 16 01/30/19 05:00 BP 136/78 01/30/19 05:00 Pulse Ox 97 01/30/19 05:00 Intake & Output 01/29/19 01/30/19 01/30/19 18:59 06:59 18:59 Intake Total 1000 790 240 Balance 1000 790 240 Intake: IV 1000 Intake, IV Titration 200 Amount Piperacillin-Tazobactam 3 100 .375 gm In Sodium Chloride 0.9% 100 ml @ 25 mls/hr IVPB Q8HR [facility] Rx# :[id number] Sodium Chloride 0.9% 1, 100 000 ml @ 100 mls/hr IV . Q10H [facility] Rx#:[id number] Oral 590 240 Other: Voiding Method Toilet Toilet Urinal Urinal Incontinent Incontinent # Voids 2 2 - Labs CBC & Chem 7: 01/30/19 06:27 01/30/19 06:27 Labs: Abnormal Lab Results - Last 24 Hours (Table) 01/30/19 01/30/19 Range/Units 06:27 06:27 RBC 3.59 L (4.30-5.90) m/uL Hgb 11.7 L (13.0-17.5) gm/dL Hct 34.8 L (39.0-53.0) % Lymphocytes # 0.8 L (1.0-4.8) k/uL Chloride 108 H (98-107) mmol/L Glucose 104 H (74-99) mg/dL Calcium 7.8 L (8.4-10.2) mg/dL
[2019-01-30] MEDS: SODIUM CHLORIDE 0.9% 1,000 ML IV SCH ×2 (13:00→20:29)
--- NOTE | 2019-01-30 15:31 | P.PN ---
Subjective Progress Note Date: 01/30/19 Principal diagnosis: This is a 68-year-old male who was recently admitted with features of acute cholecystitis with gangrene of the gallbladder and cholelithiasis and is being closely monitored. Yesterday patient underwent laparoscopic cholecystectomy with Dr. Luciano. Patient is tolerating diet and is advancing slowly. Patient states that he has been up and walking with no issues. Patient denies any nausea or vomiting and is tolerating diet. Currently patient denies any chest pain, shortness of breath, or palpitations at this time. Patient is afebrile. Patient is currently maintained on IV antibiotics and will continue at this time. Guarded prognosis. Objective - Vital Signs Vital signs: Vital Signs Temp 98.4 F 01/30/19 12:42 Pulse 53 L 01/30/19 12:42 Resp 16 01/30/19 12:42 BP 144/70 01/30/19 12:42 Pulse Ox 97 01/30/19 12:42 Intake & Output 01/29/19 01/30/19 01/30/19 18:59 06:59 18:59 Intake Total 1000 790 540 Balance 1000 790 540 Intake: IV 1000 Intake, IV Titration 200 300 Amount Piperacillin-Tazobactam 3 100 100 .375 gm In Sodium Chloride 0.9% 100 ml @ 25 mls/hr IVPB Q8HR [facility] Rx# :[id number] Sodium Chloride 0.9% 1, 100 200 000 ml @ 100 mls/hr IV . Q10H [facility] Rx#:[id number] Oral 590 240 Other: Voiding Method Toilet Toilet Urinal Urinal Incontinent Incontinent # Voids 2 2 3 - Exam Gen: This is a 68-year-old male lying in bed in no acute distress. Vital signs are stable. Temp is 98.4F, pulse is 53, respirations are 16, blood pressure is 144/70, oxygen saturation is 97% on room air. HEENT: Head is atraumatic, normocephalic. Pupils equal, round. Sclerae is anicteric. NECK: Supple. No JVD. No lymphadenopathy. No thyromegaly. LUNGS: Diminished breath sounds at the bases with a few scattered rhonchi noted. No wheezes or crackles noted. No intercostal retractions. HEART: Regular rate and rhythm. No murmur. ABDOMEN: Soft. Bowel sounds are present. No masses. Mild tenderness at the surgical site. EXTREMITIES: No pedal edema. No calf tenderness. NEUROLOGICAL: Patient is awake, alert and oriented x3. Cranial nerves 2 through 12 are grossly intact. - Labs CBC & Chem 7: 01/30/19 06:27 01/30/19 06:27 Labs: Abnormal Lab Results - Last 24 Hours (Table) 01/30/19 01/30/19 Range/Units 06:27 06:27 RBC 3.59 L (4.30-5.90) m/uL Hgb 11.7 L (13.0-17.5) gm/dL Hct 34.8 L (39.0-53.0) % Lymphocytes # 0.8 L (1.0-4.8) k/uL Chloride 108 H (98-107) mmol/L Glucose 104 H (74-99) mg/dL Calcium 7.8 L (8.4-10.2) mg/dL Assessment and Plan Assessment: Acute cholecystitis with gangrene of the gallbladder with cholelithiasis. Status post laparoscopic cholecystectomy Increased WBC Increased total bilirubin History of cerebrovascular accident, TIA history of congestive heart failure Hypertension History of liver disease Memory impairment History of hypertension History of hepatitis C History of dementia History of degenerative joint disease History of noncompliance Full code Recommendations and discussion: Recommend to continue current medications, management, and symptomatic treatment. Following along closely with surgery. Patient is tolerating diet and may advance as tolerated per surgery recommendations. Attempting to avoid IV narcotic use and [place] has been added for pain management. Patient had a chest x-ray done yesterday which shows no active cardiopulmonary disease and no change from previous x-ray. Will repeat a.m. labs. Guarded prognosis. Further recommendations to follow. Possible discharge in 24-48 hours.
[2019-01-31] MEDS: SODIUM CHLORIDE 0.9% 1,000 ML IV SCH (04:48)
[2019-01-31 07:23] VITALS: BP 143/77; PULSE 61; RESP 18; TEMP 98.3
[2019-01-31 07:36] LABS: African American GFR (CKD) >90 (>60 ml/min/1.73 sqM); Anion Gap 9 mmol/L; Blood Urea Nitrogen 11 mg/dL (9-20); Calcium 8.2 mg/dL (8.4-10.2); Carbon Dioxide 25 mmol/L (22-30); Chloride 107 mmol/L (98-107); Glucose 83 mg/dL (74-99); Potassium 3.6 mmol/L (3.5-5.1); Sodium 141 mmol/L (137-145)
[2019-01-31 07:41] LABS: Basophils # (A) 0.1 k/uL (0-0.2); Basophils % (A) 1 %; Eosinophils # (A) 0.3 k/uL (0-0.7); Eosinophils % (A) 4 %; HGB 12.2 gm/dL (13.0-17.5); Lymphocytes # (A) 0.9 k/uL (1.0-4.8); Lymphocytes % (A) 15 %; MCHC 34.9 g/dL (31.0-37.0); MCV 94.7 fL (80.0-100.0); Mean Platelet Volume 7.6; Monocytes # (A) 0.6 k/uL (0-1.0); Monocytes % (A) 9 %; Neutrophils # (A) 4.4 k/uL (1.3-7.7); Neutrophils % (A) 70 %; Platelet Count 228 k/uL (150-450); RDW 12.5 % (11.5-15.5); WBC 6.3 k/uL (3.8-10.6)
[2019-01-31] MEDS: PIPERACILLIN-TAZOBACTAM 3.375 GM in SODIUM CHLORIDE 0.9% 100 ML IVPB SCH (07:59)
--- NOTE | 2019-01-31 15:01 | P.DS ---
Providers Date of admission: 01/29/19 13:27 Expected date of discharge: 01/31/19 Attending physician: José Miguel Luciano Consults: 01/29/19 08:10 Consult Physician Routine Consulting Provider: Cherrie Phillips Consult Reason/Comments: Medical management Do you want consulting provider notified?: Yes Primary care physician: Stated None Hospital Course: 68-year-old male who presented to the hospital with a chief complaint of abdominal pain. Patient underwent laparoscopic cholecystectomy with Dr. Luciano. Patient's doing well postoperatively without immediate complications. Patient's pain is controlled oral medications. Tolerating diet without nausea or vomiting. Vital signs and stable. He is stable for discharge home today. Please see EMR for further hospital course details. Discharge diagnosis: 1. Acute cholecystitis with gangrene of gallbladder and cholelithiasis, status post laparoscopically cholecystectomy Nurse practitioner note has been reviewed by physician. Signing provider agrees with the documented findings, assessment, and plan of care. Patient Condition at Discharge: Stable Plan - Discharge Summary New Discharge Prescriptions: New Hydrocodone/Acetaminophen [[place] 5-325] 1 tab PO Q6HR PRN 3 Days #12 tab PRN Reason: Pain Docusate [Colace] 100 mg PO BID #30 capsule Levofloxacin [Levaquin] 500 mg PO DAILY #5 tab No Action Wellbutrin(Unknown Dose) 1 tab PO DAILY Discharge Medication List Wellbutrin(Unknown Dose) 1 tab PO DAILY 01/28/19 [History] Docusate [Colace] 100 mg PO BID #30 capsule 01/31/19 [Rx] Hydrocodone/Acetaminophen [[place] 5-325] 1 tab PO Q6HR PRN 3 Days #12 tab 01/31/19 [Rx] Levofloxacin [Levaquin] 500 mg PO DAILY #5 tab 01/31/19 [Rx] Follow up Appointment(s)/Referral(s): None,Stated [Primary Care Provider] - 1 Week (Patient to find a primary physician and make an appointment with them) José Miguel Luciano MD [STAFF PHYSICIAN] - 02/09/19 3:40 pm Patient Instructions/Handouts: *Surgery [facility] - ([facility]) Laparoscopic Cholecystectomy, Hydrocodone/Acetaminophen (By mouth), Laxative, Stool Softeners (By mouth), Levofloxacin (By mouth), Surgical Site Infections (DC) Activity/Diet/Wound Care/Special Instructions: No driving while taking [place] No lifting over 10 pounds You may shower. No soaking or tub baths Very light activity until you are reevaluated at your follow up appointment with your surgeon Discharge Disposition: HOME SELF-CARE
--- NOTE | 2019-01-31 16:04 | P.PN ---
Subjective Progress Note Date: 01/31/19 Principal diagnosis: This is a 68-year-old male who was recently admitted with features of acute cholecystitis with gangrene of the gallbladder and cholelithiasis and is being closely monitored. Yesterday patient underwent laparoscopic cholecystectomy with Dr. Luciano. Patient is tolerating diet and is advancing slowly. Patient states that he has been up and walking with no issues. Patient denies any nausea or vomiting and is tolerating diet. Currently patient denies any chest pain, shortness of breath, or palpitations at this time. Patient is afebrile. Patient is currently maintained on IV antibiotics and will continue at this time. Guarded prognosis. 01/31/2019 Patient is sitting up at the side of the bed in no acute distress. No acute overnight issues. Per nursing staff patient was not requiring any IV pain medications and is tolerating with oral medications. Patient is awaiting for surgery to round for possible discharge today. Currently patient denies any chest pain, shortness of breath, or palpitations at this time. Patient is afebrile. Patient denies any nausea or vomiting and is tolerating diet. Patient is urinating normal and has had a bowel movement. Guarded prognosis. Objective - Vital Signs Vital signs: Vital Signs Temp 98.3 F 01/31/19 07:21 Pulse 61 01/31/19 07:21 Resp 18 01/31/19 07:21 BP 143/77 01/31/19 07:21 Pulse Ox 96 01/31/19 07:21 Intake & Output 01/30/19 01/31/19 01/31/19 18:59 06:59 18:59 Intake Total 540 340 480 Output Total 600 Balance 540 -260 480 Intake: Intake, IV Titration 300 100 Amount Piperacillin-Tazobactam 3 100 100 .375 gm In Sodium Chloride 0.9% 100 ml @ 25 mls/hr IVPB Q8HR [facility] Rx# :[id number] Sodium Chloride 0.9% 1, 200 000 ml @ 100 mls/hr IV . Q10H [facility] Rx#:[id number] Oral 240 240 480 Output: Urine 600 Other: Voiding Method Urinal Urinal # Voids 3 1 - Exam Gen: This is a 68-year-old male lying in bed in no acute distress. Vital signs are stable. Temp is 98.3F, pulse is 61, respirations are 18, blood pressure is 143/77, oxygen saturation is 96% on room air. HEENT: Head is atraumatic, normocephalic. Pupils equal, round. Sclerae is anicteric. NECK: Supple. No JVD. No lymphadenopathy. No thyromegaly. LUNGS: Diminished breath sounds at the bases with a few scattered rhonchi noted. No wheezes or crackles noted. No intercostal retractions. HEART: Regular rate and rhythm. No murmur. ABDOMEN: Soft. Bowel sounds are present. No masses. Mild tenderness at the surgical site. Slightly improved from yesterday EXTREMITIES: No pedal edema. No calf tenderness. NEUROLOGICAL: Patient is awake, alert and oriented x3. Cranial nerves 2 through 12 are grossly intact. - Labs CBC & Chem 7: 01/31/19 06:24 01/31/19 06:24 Labs: Abnormal Lab Results - Last 24 Hours (Table) 01/31/19 01/31/19 Range/Units 06:24 06:24 RBC 3.70 L (4.30-5.90) m/uL Hgb 12.2 L (13.0-17.5) gm/dL Hct 35.0 L (39.0-53.0) % Lymphocytes # 0.9 L (1.0-4.8) k/uL Calcium 8.2 L (8.4-10.2) mg/dL Assessment and Plan Assessment: Acute cholecystitis with gangrene of the gallbladder with cholelithiasis. Status post laparoscopic cholecystectomy Increased WBC Increased total bilirubin History of cerebrovascular accident, TIA history of congestive heart failure Hypertension History of liver disease Memory impairment History of hypertension History of hepatitis C History of dementia History of degenerative joint disease History of noncompliance Full code Recommendations and discussion: Recommend to continue current medications, management, and symptomatic treatment. Following along closely with surgery. Patient is tolerating diet and has advanced as tolerated per surgery recommendations. Per nursing staff patient was not requiring any IV pain medications and is tolerating oral pain medications. Patient's labs today were within normal limits. Guarded prognosis. Further recommendations to follow. Possible discharge this morning per surgery.
--- NOTE | 2019-02-08 15:52 | CDI ---
Documentation Clarification Form Date: 02/08/19 From: Nya Singh Phone: If you have a question about this query, please contact Lorrie Mcneil, Biomedical Technician at [phone] between 8am and 5pm. Admit Date: 01/29/19 Discharge Date: 01/31/19 Patient Name: Ji Visit Number: [id number] ATTENTION: The Clinical Documentation Specialists (CDI) and [facility] Coding Staff appreciate your assistance in clarifying documentation. Please respond to the clarification below the line at the bottom and electronically sign. The CDI & [facility] Coding staff will review the response and follow-up if needed. Please note: Queries are made part of the Legal Health Record. If you have any questions, please contact the author of this message via ITS. Dear Dr Cherrie Phillips, Per documentation in H&P & ED note - patient thinks dx was CHF. Per your consult & 01/31 PN- hx of CHF & HTN. History/Risk Factors: Acute cholecystitis w cholelithasis wo obstruction, gangrene of gallbladder, Alzheimer's Clinical Indicators: Per your consult - The CXR may also be recommended to rule out the possibility of active CHF at this time. VS/Pulse OX: T-101, P-92, R-18, BP-121/78, O2 sat-92 RA BNP: none Echocardiogram Results: none Chest X Ray: Heart and mediastinum are normal. Lungs are clear. Diaphragm is normal. Bony thorax is intact. There is no pleural effusion. Treatment: no Lasix given, no BP medications In your professional opinion, can you please clarify the acuity and type of CHF & HTN if known? TYPE Systolic Heart Failure Diastolic Heart Failure Systolic & Diastolic Heart Failure ACUITY Acute Chronic Acute on Chronic Heart Failure History of Unable to Determine Other, please specify Unable to Determine MTDD
== END 2019-01-31 10:30 | disposition home or self-care (01) | DRG 419 ==
LOC: EC 17:41 → 3NMEDONC 19:03 → OBSVTOIN 01-29 13:27
PROVIDERS: ADMIT Surgery; ATTEND Surgery
PROC: 0FT44ZZ Resection of Gallbladder, Percutaneous Endoscopic Approach (ICD-10-PCS; principal; 2019-01-29 07:00)
DX: K80.00 Calculus of gallbladder with acute cholecystitis without obstruction (principal); K82.A1 Gangrene of gallbladder in cholecystitis; I11.0 Hypertensive heart disease with heart failure; I50.9 Heart failure, unspecified; G30.0 Alzheimer's disease with early onset; F02.80 Dementia in other diseases classified elsewhere, unspecified severity, without behavioral disturbance, psychotic disturbance, mood disturbance, and anxiety; B19.20 Unspecified viral hepatitis C without hepatic coma; M19.90 Unspecified osteoarthritis, unspecified site; R32 Unspecified urinary incontinence; F17.200 Nicotine dependence, unspecified, uncomplicated; Z79.899 Other long term (current) drug therapy; Z91.19 Patient's noncompliance with other medical treatment and regimen; Z86.79 Personal history of other diseases of the circulatory system; Z86.73 Personal history of transient ischemic attack (TIA), and cerebral infarction without residual deficits; Z89.421 Acquired absence of other right toe(s); Z98.890 Other specified postprocedural states; Z88.5 Allergy status to narcotic agent; Z83.3 Family history of diabetes mellitus
CPT/HCPCS: 71045; 80048; 80053; 80306; 85025; 88304; 96365; 96375; 99285

== ENCOUNTER → 2020-04-27 | Outpatient (CLI) | payer MEDICARE ==
--- NOTE | 2020-04-28 22:43 | MR ---
EXAMINATION TYPE: MR brain wo/w con DATE OF EXAM: 04/27/2020 COMPARISON: None HISTORY: Loss of smell CONTRAST: Standard multiplanar, multisequence MRI departmental protocol utilizing 7.5 mL intravenous Gadavist g adolinium contrast. There is cerebral cortical atrophy. There is no mass effect nor midline shift. There is no sign of in tracranial hemorrhage. There is some enlargement of the ventricles. There is 2.2 x 1 cm area of incre ased and decreased signal on the right anterior internal capsule consistent with old hemorrhagic lacu yeni infarct. I see no evidence of an acute infarct. The brainstem is intact. Corpus callosum is intac t. There is slight enlargement of the frontal horn right lateral ventricle compared to the left. Sell a turcica appears normal. Contrast images show normal enhancement of the venous sinuses. There is arterial flow in the anterior middle and posterior cerebral arteries. There is no mass effect. IMPRESSION: There is old lacunar infarct right internal capsule. This appears unchanged compared to old CT scan o f 01/27/2016. No acute intracranial abnormality.
== END | disposition home or self-care (01) ==
LOC: RADMRIMAIN 15:05
PROVIDERS: ATTEND Otolaryngology
DX: R43.0 Anosmia (principal); Z86.73 Personal history of transient ischemic attack (TIA), and cerebral infarction without residual deficits
CPT/HCPCS: 70553; A9585

== ENCOUNTER → 2020-11-28 | Outpatient (CLI) | payer MEDICARE ==
--- NOTE | 2020-11-29 07:08 | XR ---
EXAMINATION TYPE: XR knee limited RT DATE OF EXAM: 11/28/2020 CLINICAL HISTORY: Pain for years. Osteoarthritis. TECHNIQUE: 2 views of the right knee are obtained. COMPARISON: None. FINDINGS: There is no acute fracture/dislocation evident in right knee. Meniscal calcification consi stent with chondrocalcinosis. Mild to moderate tricompartment joint space loss. Mild patellofemoral compartment spurring. Additional spur from anterior superior patellar distal quadriceps tendon attach ment. Metallic screw fragments from ACL repair. Additional orthogonal screws in the distal femoral me tadiaphysis and proximal tibial metaphysis noted. Increased density suprapatellar bursa consistent wi th small to moderate-sized joint effusion. IMPRESSION: As above.
--- NOTE | 2020-11-29 07:10 | XR ---
EXAMINATION TYPE: XR lumbar spine 2 or 3V DATE OF EXAM: 11/28/2020 CLINICAL HISTORY: Pain and osteoarthritis TECHNIQUE: Frontal and lateral images of the lumbar spine are obtained. COMPARISON: CT abdomen and pelvis January 28, 2019 FINDINGS: There are 5 lumbar type vertebral bodies redemonstrated. Slight grade 1 retrolisthesis L4 and L5 on current study. [id number] multilevel anterior and lateral spurring. Mild to moderate disc space narrowing L4-L5 and L5-S1 levels. Mild disc space narrowing L3-L4 level. Facet arthropathy in the lower lumbar spine. Multilevel spinous process hypertrophy or Florence's disease redemonstrate d. Moderate overlying atherosclerotic calcification redemonstrated. IMPRESSION: As above.
--- NOTE | 2020-11-29 07:12 | XR ---
EXAMINATION TYPE: XR thoracic spine 2V DATE OF EXAM: 11/28/2020 CLINICAL HISTORY: Pain for years TECHNIQUE: Frontal, lateral, and swimmer's view of thoracic spine are obtained. COMPARISON: None. FINDINGS: Thoracic spine show slight underlying scoliotic curvature thoracic spine . Vertebral body heights and disc space heights are preserved. Moderate to severe multilevel anterior lateral spurs wi th bridging spurs noted at several levels. Visualized ribs are intact bilaterally. IMPRESSION: As above.
== END | disposition home or self-care (01) ==
LOC: RADXRMAIN 16:30
PROVIDERS: ATTEND Nurse Practitioner Family
DX: M17.11 Unilateral primary osteoarthritis, right knee (principal); M48.061 Spinal stenosis, lumbar region without neurogenic claudication; M12.88 Other specific arthropathies, not elsewhere classified, other specified site
CPT/HCPCS: 72070; 72100

== ENCOUNTER → 2021-04-14 | Outpatient (CLI) | payer MEDICARE ==
--- NOTE | 2021-04-14 16:20 | US ---
EXAMINATION TYPE: US venous doppler duplex LE LT DATE OF EXAM: 04/14/2021 4:03 PM COMPARISON: NONE CLINICAL HISTORY: 70-year-old male M79.662,R22.42 PAIN AND SWELLING IN LT LOWER LIMB. Pain and edema left leg. Lung left upper calf SIDE PERFORMED: left TECHNIQUE: The lower extremity deep venous system is examined utilizing real time linear array sonog vilma with graded compression, doppler sonography and color-flow sonography. FINDINGS: VESSELS IMAGED: Common Femoral Vein Deep Femoral Vein Greater Saphenous Vein * Femoral Vein Popliteal Vein Small Saphenous Vein * Proximal Calf Veins (* superficial vessels) Left Leg: No evidence of DVT. Complex fluid collection left upper calf = 11.5 x 2.3 x 3.6cm IMPRESSION: 1. No evidence for DVT within the left lower extremity imaged from the groin to the upper calf. 2. Large, mildly complex fluid collection along the upper calf measuring up to 11.5 x 3.6 cm. If ther e was an injury, this could represent a hematoma. A large Vasquez cyst is also possible. Consider MRI i f clinically indicated.
[2021-04-14 17:18] LABS: HCT 39.2 % (39.0-53.0); MCH 31.9 pg (25.0-35.0); MCHC 33.1 g/dL (31.0-37.0); MCV 96.5 fL (80.0-100.0); Mean Platelet Volume 8.2; Platelet Count 391 k/uL (150-450); RBC 4.06 m/uL (4.30-5.90); RDW 14.5 % (11.5-15.5); WBC 8.2 k/uL (3.8-10.6)
[2021-04-14 17:26] LABS: ALT 16 U/L (4-49); AST 19 U/L (17-59); African American GFR (CKD) >90 (>60 ml/min/1.73 sqM); Albumin 3.9 g/dL (3.5-5.0); Alkaline Phosphatase 93 U/L (38-126); Anion Gap 10 mmol/L; Blood Urea Nitrogen 19 mg/dL (9-20); Calcium 9.6 mg/dL (8.4-10.2); Carbon Dioxide 28 mmol/L (22-30); Chloride 107 mmol/L (98-107); Glucose 96 mg/dL (74-99); Non-African American GFR(CKD) >90 (>60 ml/min/1.73 sqM); Potassium 3.9 mmol/L (3.5-5.1); Sodium 145 mmol/L (137-145); Total Bilirubin 0.4 mg/dL (0.2-1.3); Uric Acid 3.1 mg/dL (3.5-8.5)
== END | disposition home or self-care (01) ==
LOC: RADUSWWP 14:58
PROVIDERS: ATTEND Family Medicine
DX: M79.662 Pain in left lower leg (principal); R22.42 Localized swelling, mass and lump, left lower limb
CPT/HCPCS: 80053; 84550; 85027; 85379

== ENCOUNTER → 2021-04-25 | Outpatient (CLI) | payer MEDICARE | END | disposition home or self-care (01) | LOC: LABWHC1 11:19 | DX: R79.1 Abnormal coagulation profile (principal) | CPT/HCPCS: 36415; 85379 ==

== ENCOUNTER 2024-10-17 09:15 | Emergency (ER) | payer MEDICARE ==
--- NOTE | 2024-10-17 09:47 | ED ---
General Adult HPI - General Chief complaint: Recheck/Abnormal Lab/Rx Stated complaint: Abn labs Time Seen by Provider: 10/17/24 09:22 Source: patient, RN notes reviewed, Caregiver Mode of arrival: wheelchair Limitations: no limitations - History of Present Illness Initial comments: Patient is a 74-year-old male present to the emergency department with caregiver with concern for thrombocytopenia. Patient had platelet count 123 in April, 93 in August, 48 in September. Patient has some occasional bruising of his arms otherwise no complaints. No history of similar symptoms previously. Patient is wheelchair-bound secondary to arthritis. No hematuria or rectal bleeding. - Related Data Home Medications Medication Instructions Recorded Confirmed Clotrimazole Cream [Lotrimin Cream] 1 applic TOPICAL DAILY PRN 10/17/24 10/17/24 QUEtiapine FUMARATE [SEROquel] 25 mg PO HS 10/17/24 10/17/24 Allergies Allergy/AdvReac Type Severity Reaction Status Date / Time meperidine HCl [From Demerol] Allergy Itching Verified 10/17/24 11:39 Review of Systems ROS Statement: Those systems with pertinent positive or pertinent negative responses have been documented in the HPI. ROS Other: All systems not noted in ROS Statement are negative. Constitutional: Denies: fever Cardiovascular: Denies: chest pain Hematological/Lymphatic: Reports: as per HPI. Denies: easy bruising, swollen glands Past Medical History Past Medical History: Heart Failure, CVA/TIA, Dementia, Hypertension, Liver Disease, Memory Impairment Additional Past Medical History / Comment(s): Think dx was CHF but not sure. Stopped BP medication because his BP was good. hx hepatitis c, recent 0 titres. dx alzheimers beginning stage History of Any Multi-Drug Resistant Organisms: None Reported Past Surgical History: Orthopedic Surgery Additional Past Surgical History / Comment(s): ACL replacement rt knee. 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 Past Anesthesia/Blood Transfusion Reactions: No Reported Reaction Past Psychological History: No Psychological Hx Reported Past Alcohol Use History: None Reported Past Drug Use History: None Reported - Past Family History Brother(s) Family Medical History: Diabetes Mellitus General Exam Limitations: no limitations General appearance: alert, in no apparent distress Head exam: Present: atraumatic Eye exam: Present: normal appearance ENT exam: Present: normal exam Neck exam: Present: normal inspection Respiratory exam: Present: normal lung sounds bilaterally Cardiovascular Exam: Present: regular rate, normal rhythm GI/Abdominal exam: Present: soft. Absent: tenderness Extremities exam: Present: other (Legs atrophied) Neurological exam: Present: alert Psychiatric exam: Present: flat affect Skin exam: Present: normal color Course Vital Signs 10/17/24 10/17/24 09:17 11:36 Temperature 98.3 F 97.8 F Pulse Rate 54 L 45 L Respiratory 20 18 Rate Blood Pressure 134/82 118/77 O2 Sat by Pulse 98 96 Oximetry Medical Decision Making - Medical Decision Making Was pt. sent in by a medical professional or institution (, PA, DATA CONVERSION ANALYST, urgent care, hospital, or [facility]...) When possible be specific @ -Patient was sent by visiting nurse Did you speak to anyone other than the patient for history (EMS, parent, family, police, friend...)? What history was obtained from this source @ -Corrections Lieutenant provides history as patient is a poor historian Did you review nursing and triage notes (agree or disagree)? Why? @ -I reviewed and agree with nursing and triage notes Were old charts reviewed (outside hosp., previous admission, EMS record, old EKG, old radiological studies, urgent care reports/EKG's, [facility] records)? Report findings @ -No old charts were reviewed Differential Diagnosis (chest pain, altered mental status, abdominal pain women, abdominal pain men, vaginal bleeding, weakness, fever, dyspnea, syncope, headache, dizziness, GI bleed, back pain, seizure, CVA, palpatations, mental health, musculoskeletal)? @ -Differential Weakness: Hypoglycemia, shock, sepsis, hyponatremia, anemia, infection, IL, ETOH, adverse medicine reaction, overdose, stroke, this is not meant to be an all-inclusive list. EKG interpreted by me (3pts min.). @ -As above X-rays interpreted by me (1pt min.). @ -Chest x-ray without acute abnormality CT interpreted by me (1pt min.). @ -None done U/S interpreted by me (1pt. min.). @ -None done What testing was considered but not performed or refused? (CT, X-rays, U/S, labs)? Why? @ -None What meds were considered but not given or refused? Why? @ -None Did you discuss the management of the patient with other professionals (professionals i.e. Dr., PA, DATA CONVERSION ANALYST, lab, RT, psych nurse, social group worker, mixing house operator, teacher, life science technical officer, returned case inspector)? Give summary @ -Case discussed with oncology practitioner Laurence pina who will follow-up with patient Was smoking cessation discussed for >3mins.? @ -No Was critical care preformed (if so, how long)? @ -No Were there social determinants of health that impacted care today? How? (Homelessness, low income, unemployed, alcoholism, drug addiction, tr ansportation, low edu. Level, literacy, decrease access to med. care, alf, rehab)? @ -No Was there de-escalation of care discussed even if they declined (Discuss DNR or withdrawal of care, Hospice)? DNR status @ -No What co-morbidities impacted this encounter? (DM, HTN, Smoking, COPD, CAD, Cancer, CVA, ARF, Chemo, Hep., AIDS, mental health diagnosis, sleep apnea, morbid obesity)? @ -None Was patient admitted / discharged? Hospital course, mention meds given and route, prescriptions, significant lab abnormalities, going to OR and other pertinent info. @ -Patient presents with concern for thrombocytopenia. Laboratory does confirm this however patient can be worked up as an outpatient. Patient will be discharged with primary care physician and oncology follow-up. Corrections Lieutenant and patient updated Undiagnosed new problem with uncertain prognosis? @ -No Drug Therapy requiring intensive monitoring for toxicity (Heparin, Nitro, Insulin, Cardizem)? @ -No Were any procedures done? @ -No Diagnosis/symptom? @ -Thrombocytopenia Acute, or Chronic, or Acute on Chronic? @ -Acute Uncomplicated (without systemic symptoms) or Complicated (systemic symptoms)? @ -Default Side effects of treatment? @ -No Exacerbation, Progression, or Severe Exacerbation? @ -No Poses a threat to life or bodily function? How? (Chest pain, USA, IL, pneumonia, PE, COPD, DKA, ARF, appy, cholecystitis, CVA, Diverticulitis, Homicidal, Suicidal, threat to staff... and all critical care pts) @ -Threat to hematological function - Lab Data Result diagrams: 10/17/24 09:59 10/17/24 09:59 Lab Results 10/17/24 10/17/24 10/17/24 Range/Units 09:59 09:59 09:59 WBC 4.54 (4.50-10.00) 10*3/uL RBC 3.90 L (4.40-5.60) 10*6/uL Hgb 13.3 (13.0-17.0) g/dL Hct 38.7 L (39.6-50.0) % MCV 99.2 H (80.0-97.0) fL MCH 34.1 H (27.0-32.0) pg MCHC 34.4 (32.0-37.0) g/dL Plt Count 91 L (140-440) 10*3/uL MPV 12.2 (9.5-12.2) fL Immature Gran % (Auto) 0.2 % Neutrophils % 65.3 % Lymphocytes % 24.2 % Monocytes % 7.0 % Eosinophils % 2.4 % Basophils % 0.9 % Immature Gran # 0.01 (0.00-0.04) 10*3/uL Neutrophils # 2.96 (1.80-7.70) 10*3/uL Lymphocytes # 1.10 (0.90-5.00) 10*3/uL Monocytes # 0.32 (0.20-1.00) 10*3/uL Eosinophils # 0.11 (0.04-0.35) 10*3/uL Basophils # 0.04 (0.00-0.10) 10*3/uL PT 9.9 L (10.0-12.5) sec INR 0.9 (<1.2) APTT 24.3 (22.0-30.0) sec Fibrinogen 412 (200-500) mg/dL Sodium 144 (137-145) mmol/L Potassium 4.2 (3.5-5.1) mmol/L Chloride 111 H (98-107) mmol/L Carbon Dioxide 22 (22-30) mmol/L Anion Gap 11 mmol/L BUN 18 (9-20) mg/dL Creatinine 0.60 L (0.66-1.25) mg/dL Est GFR (CKD-EPI)AfAm >90 (>60 ml/min/1.73 sqM) Est GFR (CKD-EPI)NonAf >90 (>60 ml/min/1.73 sqM) Glucose 127 H (74-99) mg/dL Calcium 9.0 (8.4-10.2) mg/dL Total Bilirubin 0.5 (0.2-1.3) mg/dL AST 28 (17-59) U/L ALT 23 (4-49) U/L Alkaline Phosphatase 84 (38-126) U/L Total Protein 6.4 (6.3-8.2) g/dL Albumin 3.6 (3.5-5.0) g/dL Disposition Clinical Impression: Thrombocytopenia Disposition: HOME SELF-CARE Condition: Stable Instructions (If sedation given, give patient instructions): Thrombocytopenia (ED) Additional Instructions: Please do follow-up with primary care physician in the next few days for recheck. Please also follow-up with hematology, number provided. Return for bleeding, weakness, worsening or changing symptoms or other concerns. Is patient prescribed a controlled substance at d/c from ED?: No Referrals: Carroll Galeano DO [Primary Care Provider] - 1-2 days Eduardo Brennan [STAFF PHYSICIAN] - 1-2 days Time of Disposition: 12:20
[2024-10-17 10:09] LABS: Basophils # (A) 0.04 10*3/uL (0.00-0.10); Basophils % (A) 0.9 %; Eosinophils # (A) 0.11 10*3/uL (0.04-0.35); Eosinophils % (A) 2.4 %; HCT 38.7 % (39.6-50.0); HGB 13.3 g/dL (13.0-17.0); Lymphocytes # (A) 1.10 10*3/uL (0.90-5.00); Lymphocytes % (A) 24.2 %; MCH 34.1 pg (27.0-32.0); MCHC 34.4 g/dL (32.0-37.0); MCV 99.2 fL (80.0-97.0); Monocytes # (A) 0.32 10*3/uL (0.20-1.00); Monocytes % (A) 7.0 %; Neutrophils # (A) 2.96 10*3/uL (1.80-7.70); Neutrophils % (A) 65.3 %; RBC 3.90 10*6/uL (4.40-5.60); RDW 13.4 % (11.5-14.5); WBC 4.54 10*3/uL (4.50-10.00)
[2024-10-17 10:23] LABS: Fibrinogen 412.0 mg/dL (200-500); INR 0.9 (<1.2); Prothrombin Time 9.9 sec (10.0-12.5)
[2024-10-17 10:24] LABS: Partial Thromboplastin Time 24.3 sec (22.0-30.0)
--- NOTE | 2024-10-17 10:42 | XR ---
EXAMINATION TYPE: XR chest 2V DATE OF EXAM: 10/17/2024 10:36 AM COMPARISON: Chest radiographs from 01/29/2019 TECHNIQUE: XR chest 2V Frontal and lateral views of the chest. CLINICAL INDICATION:Male, 74 years old with history of Weakness; FINDINGS: Lungs/Pleura: There is no evidence of pleural effusion, focal consolidation, or pneumothorax. Chroni c senescent parenchymal change. Pulmonary vascularity: Unremarkable. Heart/mediastinum: Cardiomediastinal silhouette is unremarkable. Atherosclerotic calcifications are seen in the aorta. Musculoskeletal: Multiple level degenerative disc disease changes seen throughout the spine. IMPRESSION: No acute cardiopulmonary disease/process. [facility], , 10/17/2024 10:39 AM
[2024-10-17 10:45] LABS: ALT 23 U/L (4-49); AST 28 U/L (17-59); African American GFR (CKD) >90 (>60 ml/min/1.73 sqM); Albumin 3.6 g/dL (3.5-5.0); Alkaline Phosphatase 84 U/L (38-126); Anion Gap 11 mmol/L; Blood Urea Nitrogen 18 mg/dL (9-20); Calcium 9.0 mg/dL (8.4-10.2); Carbon Dioxide 22 mmol/L (22-30); Chloride 111 mmol/L (98-107); Glucose 127 mg/dL (74-99); Non-African American GFR(CKD) >90 (>60 ml/min/1.73 sqM); Potassium 4.2 mmol/L (3.5-5.1); Sodium 144 mmol/L (137-145); Total Protein 6.4 g/dL (6.3-8.2)
[2024-10-17 10:49] LABS: Platelet Count 91 10*3/uL (140-440)
[2024-10-17 13:58] VITALS: BP 116/65; PULSE 60; RESP 16; TEMP 97.9
[2024-10-17 16:45] LABS: Vitamin B12 363.0 pg/mL (200.0-944.0)
== END 2024-10-17 13:58 | disposition home or self-care (01) ==
LOC: EC 09:15
DX: D69.6 Thrombocytopenia, unspecified (principal); Z88.5 Allergy status to narcotic agent
CPT/HCPCS: 36415; 71046; 80053; 82607; 82746; 85025; 85384; 85610; 85730; 99283